=== PATIENT | female | born 1965 | race Caucasian/White ===

== ENCOUNTER 2016-12-02 06:40 | Day surgery (SDC) | payer OTHER ==
[2016-11-20 13:18] VITALS: BMI 28.3
[2016-12-02] MEDS ORDERED: MIDAZOLAM HCL 2 MG/2 ML SINGLE DOSE VIAL ONE (07:47)
[2016-12-02] MEDS ORDERED: PROPOFOL 20 ML ONE ×3 (07:52)
[2016-12-02] MEDS ORDERED: ONDANSETRON 4 MG/2 ML VIAL ONE (08:02)
[2016-12-02] MEDS ORDERED: DEXAMETHASONE SOD PHOSPHATE 4 MG/1 ML VIAL ONE (08:02)
[2016-12-02] MEDS ORDERED: ceFAZolin SODIUM 1 GM VIAL ONE (08:02)
[2016-12-02] MEDS ORDERED: KETOROLAC TROMETHAMINE 30 MG/1 ML VIAL ONE (08:06)
[2016-12-02] MEDS ORDERED: oxyCODONE HCL 5 MG TABLET PO PRN (08:39)
[2016-12-02] MEDS ORDERED: IBUPROFEN 800 MG/8 ML IJ IVPB PRN (08:39)
[2016-12-02] MEDS ORDERED: ACETAMINOPHEN 325 MG TABLET (FP) PO PRN (08:39)
[2016-12-02] MEDS ORDERED: LACTATED RINGERS SOLUTION 1,000 ML IV SCH ×2 (08:45→09:00)
--- NOTE | 2016-12-02 08:49 | OP ---
Operative Note - Note: Operative Date: 12/02/16 Pre-Operative Diagnosis: iud insitu Operation: hysteroscopic iud removal and iud insertion Findings: uterus av 6 cm iud and string insitu Implants: mirena iud lot#[id number]. exp 05/2019 Surgeon: Hannah Green Anesthesiologist/ROUTE PROCESS ADMINISTRATOR: Lucretia Cordova Specimens Removed: mirena iud Instrument used (Debridements only): hysteroscopy Drains & Tubes with Location: iv 400cc. ns hysteroscopy-deficit of 50cc Drains, Volume Out (mls): 0 Operative Report Dictated: Yes
[2016-12-02] MEDS ORDERED: ACETAMINOPHEN 325 MG TABLET (FP) ONE (08:52)
[2016-12-02] MEDS ORDERED: ONDANSETRON 4 MG/2 ML VIAL IVPUSH PRN (08:54)
[2016-12-02] MEDS ORDERED: IBUPROFEN 600 MG TABLET (FP) PO PRN (08:54)
[2016-12-02] MEDS ORDERED: ACETAMINOPHEN 325 MG TABLET (FP) PO ONE (08:55)
--- NOTE | 2016-12-02 09:32 | OP ---
DATE OF OPERATION: 12/02/2016 PROCEDURE: Hysteroscopic intrauterine device removal and intrauterine device insertion of a Mirena intrauterine device. PREOPERATIVE DIAGNOSIS: Mirena intrauterine device in situ. SURGEON: Hannah Green MD ANESTHESIA: Premveta Cordova, DO INTRAVENOUS FLUIDS: Crystalloid 400 mL. URINE OUTPUT: 100 mL clear urine. Normal saline deficit of 50 mL. FINDINGS: Uterus anteverted, 6 cm. IUD and string in situ, removed without difficulty. New IUD, Mirena IUD, lot number [id number], with an expiration date of 05/2019 inserted without difficulty. DESCRIPTION OF PROCEDURE: The patient was taken to the operating room after consent was obtained. Patient placed in dorsal lithotomy position and prepped and draped in routine sterile fashion. After a timeout was obtained, straight catheterization for 100 mL of clear urine. Speculum was inserted, anterior lip of the cervix grasped with a single-tooth tenaculum, cervix slowly dilated to introduce a diagnostic scope. Scope was inserted without difficulty, and upon entry into the cavity, IUD was visualized. A polyp forceps inserted in the dissecting port of the hysteroscope. The string was grasped and pulled out to the level of the cervix. The hysteroscope was then removed. Polyp forceps were then inserted into the cervix and the IUD removed without difficulty intact. Uterus sounded to approximately 6 cm. A new Mirena IUD was inserted without difficulty. String was trimmed, and all instrumentation at this point was removed. Patient was woken up from her anesthesia and taken to the ASC in good condition. Eleno [id number]
[2016-12-02 09:50] VITALS: BP 122/69; PULSE 66; TEMP 97.6
--- NOTE | 2016-12-04 16:11 | PATH ---
Surgical Pathology Report Patient Name: ABIOLA PELAYO Med. Rec. #: [id number] /Age/Gender: 1965 (Age: 51) / F Account: [id number] Location: [facility] AM[facility]UL[facility] Taken: 12/02/2016 Received: 12/02/2016 Reported: 12/04/2016 Physicians: Hannah Green Specimen(s) Received I.U.D Clinical History IUD removal/insertion Final Diagnosis IUD, REMOVAL: IUD, DESCRIBED (GROSS EXAMINATION ONLY). Electronically Signed Hue Cuellar M.D. Gross Description Received fresh labeled "IUD," is a 3 cm in length T-shaped device, consistent with an intrauterine device. No soft tissue is present. No sections are submitted, gross only. 12/03/2016 [facility]12/03/2016
== END 2016-12-02 09:35 | disposition home or self-care (01) ==
LOC: FASU 06:40
PROVIDERS: ATTEND Obstetrics & Gynecology
PROC: 0UH97HZ Insertion of Contraceptive Device into Uterus, Via Natural or Artificial Opening (ICD-10-PCS; 2016-12-02)
PROC: 0UPD8HZ Removal of Contraceptive Device from Uterus and Cervix, Via Natural or Artificial Opening Endoscopic (ICD-10-PCS; principal; 2016-12-02 07:50)
DX: Z30.433 Encounter for removal and reinsertion of intrauterine contraceptive device (principal)
CPT/HCPCS: 84703; 88300-TC